=== PATIENT | male | born 1995 | race Caucasian/White ===

== ENCOUNTER 2019-11-02 14:29 | Emergency (ER) | payer MEDICAID, SELFPAY ==
[2019-11-02 14:50] VITALS: BP 103/74; PULSE 73; RESP 20; TEMP 37.6; O2SAT 99; BMI 20.3
--- NOTE | 2019-11-02 15:12 | HMH.EDUTC ---
[facility] [place] Disposition Clinical Impression: Corneal abrasion Qualifiers: Encounter type: initial encounter Laterality: right Qualified Code(s): S05.01XA - Injury of conjunctiva and corneal abrasion without foreign body, right eye, initial encounter Disposition: Home, Self-Care Condition on Discharge: Good Instructions: DI for Corneal Abrasion Additional Instructions: Follow up with an eye doctor if you're no better by Tuesday. [facility], phone number . Please call them and get an appointment for recheck if you're not getting better. Use the eye drops as directed. Sulfacetamide 2 drops every 4 hours for the next 7 days. Follow up with your regular doctor. GO TO THE ER FOR ANY WORSENING SYMPTOMS OR CONCERNS Referrals: Will Crespo APRN [Primary Care Provider] - Time of Disposition: 15:47 Medical Decision Making - Medical Records Medical records reviewed: No: I reviewed the patient's medical records. - Danny Inquiry Pt receiving controlled substance: No Vital Signs: 11/02/19 14:50 11/02/19 15:48 Temperature 99.7 F H 99.7 F H Temperature Source Oral Pulse Rate 73 Pulse Rate [Left Brachial] 73 Respiratory Rate 20 20 Blood Pressure 103/74 L Blood Pressure [Left Arm] 103/74 L Blood Pressure Mean [Left Arm] 83 Blood Pressure Source [Left Arm] Automatic Cuff Blood Pressure Position [Left Arm] Sitting 02 Sat by Pulse Oximetry 99 Oxygen Delivery Method Room Air Orders (Tests/Meds): ED MEDICATIONS Discontinued Medications Generic Name Dose Route Start Last Admin Trade Name Freq PRN Reason Stop Dose Admin Eye Irrigation Solution 120 ml 11/02/19 15:51 11/02/19 15:55 Eye Wash Irrigation Soln 118ml Bottle OP 11/02/19 15:52 120 ml ONCE ONE Administration Fluorescein Sodium 1 mg 11/02/19 15:51 11/02/19 15:55 Fluorescein Sodium 1mg Strip OP 11/02/19 15:52 1 mg ONCE ONE Administration Sulfacetamide Sodium 0 ml 11/02/19 15:51 11/02/19 15:55 Sulf-10% Opth Soln 15ml OP 11/02/19 15:52 2 drops ONCE ONE Administration Tetracaine HCl 0 ml 11/02/19 15:51 11/02/19 15:56 Tetracaine 0.5% Ophth Solution 15ml OP 11/02/19 15:52 2 drops ONCE ONE Administration [facility] HPI - General Stated complaint: possible pink eye Time Seen by Provider: 11/02/19 15:00 Mode of Arrival: Ambulatory Source of Information: Patient Limitations: No Limitations Description of Symptoms (Recalled from Triage Doc. by RN): PATIENT C/O ITCHING AND TENDERNESS TO BILATERAL EYES WITH OCCASIONAL DRAINAGE. DENIES ANY VISION CHANGES. STATES THAT IT FEELS LIKE THERE IS SOMETHING IN THEM HEENT Symptoms (Recalled from RN notes): Yes Resp Symptoms (Recalled from RN notes): No Skin Symptoms (Recalled from RN notes): No MS Symptoms (Recalled from RN notes): No Functional Status (Recalled from RN notes): WNL - History of Present Illness Provider Complaint: He states that around 10 days ago, he started feeling like there was something in his right eye. He removed on of his dog's hairs from the eye then. The eye felt irritated, so he went to the ER a [facility]. He states that he was prescribed an eye drop there. He has finished that eye drop and his eye still feels kind of funny at times. It has also continued to be red and matted at times. He denies any change in his vision. - Related Data Home Medications Medication Instructions Recorded Confirmed No Known Home Medications 11/02/19 11/02/19 Allergies Allergy/AdvReac Type Severity Reaction Status Date / Time No Known Allergies Allergy Verified 11/02/19 14:53 - Worker's Comp Is this a Worker's Comp case?: No [facility] History - Hepatitis A Screen Drug use history?: No High risk sexual behaviors?: No History of sexually transmitted infection?: No Currently employed?: No Childcare worker?: No Do you have indoor plumbing?: Yes Do you have electricity?: Yes Attestation statement:: This p
[2019-11-02 15:48] VITALS: BP 103/74; PULSE 73; RESP 20; TEMP 37.6; O2SAT 99
== END 2019-11-02 15:56 | disposition home or self-care (01) ==
PROVIDERS: Emergency Provider Nurse Practitioner Family
DX: S05.01XA Injury of conjunctiva and corneal abrasion without foreign body, right eye, initial encounter (principal)
CPT/HCPCS: 99201

== ENCOUNTER → 2021-06-22 09:28 | Outpatient (CLI) | payer MEDICAID, SELFPAY | PROVIDERS: Visit Provider Nurse Practitioner | DX: Z20.822 Contact with and (suspected) exposure to COVID-19 (principal) | CPT/HCPCS: C9803; U0003; U0005 ==